=== PATIENT | male | born 1990 | race Caucasian/White ===

== ENCOUNTER 2017-01-03 17:41 | Emergency (ER) | payer OTHER ==
[~2017-01-03] VITALS: Ht 188 cm; Wt 104.3 kg
[~2017-01-03 17:41] MED LIST: IBUPROFEN600 MG PO; NORCO 5-325 TA1 EACH PO; ZITHROMAX250 MG PO
[2017-01-03] MEDS ORDERED: NEXIUM 24HR20 M1 PO (17:54)
[2017-01-03] MEDS ORDERED: ZANTAC300 MG PO (18:49)
== END 2017-01-03 19:19 | disposition home or self-care (01) ==
LOC: ED 17:41
DX: K21.0 Gastro-esophageal reflux disease with esophagitis (principal); Z79.899 Other long term (current) drug therapy
CPT/HCPCS: 80048; 85025; 96361; 96374; 96375; 99283; J2405; J7030

== ENCOUNTER 2017-12-22 19:54 | Emergency (ER) | payer OTHER ==
[~2017-12-22] VITALS: Ht 188 cm; Wt 108.4 kg
--- OUTSIDE RECORDS SUMMARY | ~2017-12-22 | XMS | Clinical Summary ---
Demographics + + + | Address | [address] | | | [place] [address] | + + + | Home Phone | | + + + | Preferred Language | Unknown | + + + | Marital Status | Unknown | + + + | Jew Affiliation | Unknown | + + + | Race | Unknown | + + + | Ethnic Group | Unknown | + + + Author + + + | Author | [facility] | | | and [facility] | + + + | Organization | [facility] | | | and [facility] | + + + | Address | Unknown | + + + | Phone | Unavailable | + + + Care Team Providers + +------+ + | Care Contract Post Office Clerk Name | Role | Phone | + +------+ + PP | Unavailable | + +------+ + Allergies Not on File Current Medications Not on file Active Problems Not [...] on file | | + + + Plan of Treatment + + + + + | Health Maintenance | Due Date | Last Done | Comments | + + + + + | Vaccine: | | | | | Dtap/Tdap/Td (1 - | 1 | | | | Tdap) | | | | + + + + + | Vaccine: Influenza | | | | | (#1) | 8 | | | + + + + + Results Not on filefrom Last 3 Months"
--- OUTSIDE RECORDS SUMMARY | ~2017-12-22 | XMS | Clinical Summary ---
Demographics + + + | Address | [address] | | | [place] [address] | + + + | Home Phone | | + + + | Preferred Language | Unknown | + + + | Marital Status | Single | + + + | Mandaen Affiliation | Unknown | + + + [...] Phone | + + +---------+ + | NATALYA MILTON | ECON | Unknown | | + + +---------+ + Care Team Providers + +------+ + | Care Tabular Typist Name | Role | Phone | + +------+ + PP | Unavailable | + +------+ + Source Comments ELYSSAAVTAR is fully live on both [facility] and [facility] Allergies No Known Allergies Current Medications Not on file Active Problems [...] | + + + + + | INFLUENZA VACCINE | | | | | (FLU SHOT) | 8 | | | + + + + + Results Not on filefrom Last 3 Months"
--- OUTSIDE RECORDS SUMMARY | ~2017-12-22 | XMS | Clinical Summary ---
Demographics + + + | Address | [address] | | | [place] [address] | + + + | Home Phone | | + + + | Preferred Language | Unknown | + + + | Marital Status | Unknown | + + + | Latter-Day Affiliation | Unknown | + + + | Race | Unknown | + + + | Ethnic Group | Unknown | + + + Author + + + | Author | [facility] | | | and [place] | + + + | Organization | [facility] | | | and [facility] | + + + | Address | Unknown | + + + | Phone | Unavailable | + + + Care Team Providers + +------+ + | Care Lineman Name | Role | Phone | + [...]
--- OUTSIDE RECORDS SUMMARY | ~2017-12-22 | XMS | Clinical Summary ---
Demographics + + + | Address | [address] | | | [place] [address] | + + + | Home Phone | | + + + | Preferred Language | Unknown | + + + | Marital Status | Single | + + + | Rastafari Affiliation | Unknown | + + + [...] Team Providers + +------+ + | Care Ui Ux Web Developer Name | Role | Phone | + +------+ + PP | Unavailable | + +------+ + Source Comments LEYSSAAVTAR is fully live on both [facility] and [facility] InPatient.[facility] Allergies No Known Allergies Current Medications Not [...]
[~2017-12-22 19:54] MED LIST changes: +NEXIUM 24HR20 M1 PO; +SIMVASTATIN20 MG PO; +ZANTAC300 MG PO
[2017-12-22] MEDS ORDERED: KETOROLAC TROME10 MG PO (20:39)
[2017-12-22] MEDS ORDERED: VITAMIN D250000 UNIT PO (20:40)
[2017-12-22] MEDS ORDERED: CLONIDINE HCL0.1 MG PO (20:40)
[2017-12-22] MEDS ORDERED: PROMETHAZINE HC25 M1 PO (20:40)
[2017-12-22] MEDS ORDERED: ESOMEPRAZOLE MA40 MG PO (20:40)
[2017-12-22] MEDS ORDERED: METHYLPHENIDATE18 MG PO (20:40)
== END 2017-12-22 21:57 | disposition home or self-care (01) ==
LOC: ED 19:54
DX: R51 Headache (principal); K21.9 Gastro-esophageal reflux disease without esophagitis; E78.00 Pure hypercholesterolemia, unspecified; I10 Essential (primary) hypertension; Z79.899 Other long term (current) drug therapy
CPT/HCPCS: 96374; 96375; 99283; J1200; J1885; J2765; J7030

== ENCOUNTER 2018-09-27 14:29 | Emergency (ER) | payer OTHER ==
[~2018-09-27] VITALS: Ht 188 cm; Wt 108.4 kg
--- OUTSIDE RECORDS SUMMARY | ~2018-09-27 | XMS | Clinical Summary ---
Demographics + + + | Address | [address] | | | [place] [address] | + + + | Home Phone | | + + + | Preferred Language | Unknown | + + + | Marital Status | Single | + + + | Sikhism Affiliation | Unknown | + + + | Race | White | + + + | Ethnic Group | Not or | + + + Author + + + | Organization | Unknown | + + + | Address | Unknown | + + + | Phone | Unavailable | + + + Support + + +---------+ + | Name | Relationship | Address | Phone | + + +---------+ + | Javier Kasper | ECON | Unknown | | + + +---------+ + Care Team Providers + +------+ + | Care Welding Machine Operator Plasma Arc Name | Role | Phone | + +------+ + PP | Unavailable | + +------+ + Source Comments [facility]AND[facility] Allergies No Known Allergies Medications Not on file Active Problems Not on file Social History + +-------+ +--------+------+ | Tobacco [...] recent travel history available. | + + Plan of Treatment + + + + + | Health Maintenance | Due Date | Last Done | Comments | + + + + + | Influenza (Flu) | | | | | vaccination (Season | 9 | | | | Ended) | | | | + + + + + Results Not on filefrom Last 3 Months"
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
--- OUTSIDE RECORDS SUMMARY | ~2018-09-27 | XMS | Clinical Summary ---
Demographics + + + | Address | [address] | | | [place] [address] | + + + | Home Phone | | + + + | Preferred Language | Unknown | + + + | Marital Status | Single | + + + | Quaker Affiliation | Unknown | + + + [...] Team Providers + +------+ + | Care Cooling Room Attendant Name | Role | Phone | + +------+ + PP | Unavailable | + +------+ + Source Comments MANDO is fully live on both [facility] and [facility] Allergies No Known Allergies Medications Not on [...]
--- OUTSIDE RECORDS SUMMARY | ~2018-09-27 | XMS | Encounter Summary ---
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 The family also has a few rentals in the area, and thus this is a very busy family with many activities during the day. Az and his entire family are all involved in the [facility] and this is a very positive influence on Az and he has taken a leadership role at the [facility] and his parents are quite proud of this. The family has tried varied forms of discipline with Az. They realize that physical discipline is not effective and are lessening that approach. They try time-outs as well as taking privileges away. 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 As mentioned earlier, Az does have some good friends. The last few months have been a period of adjustment, as Az has moved into a new school and area to live, away from his biological father who has lessened his contact with Az. The arrangement at the current time is that Corinne and Jose share custody of Az. Thus, it is joint custody but Jose Lyons is not as involved as Corinne had expected he would be. There is a question as to whether or not Az is feeling abandoned, perhaps a little depressed about his father not being very involved with him. The family does have Blue Cross/Blue Shield insurance, and I suggested that the family contact [employer]Blue [employer] and get a provider list of mental health therapists who work with children. Az would benefit from talking to someone about the things that are bothering him. It should be noted that Corinne was diagnosed approximately one year ago with muscular dystrophy. This slows her down somewhat but it is not a very serious form of muscular dystrophy but also might be weighing heavily on Az's mind if he does not understand exactly the severity of the muscular dystrophy. ASSESSMENT AND PLAN: Please see Dr. Sheng Vance's report regarding Az's psychological testing. It appears that Az has a cognitive score of 104, his Verbal IQ was 106, and his Performance IQ was 100. Az is described as having a lot of aggression and appearing to meet a diagnosis of Attention Deficit Hyperactivity Disorder, and it should be noted that his father also appears to have had this disorder. In terms of his Education evaluation, Deidre Katz found Az functioning in reading at the fifth grade level, at the sixth grade level in math, and written language was also at the fifth grade level. His fluency was at the fifth grade, eighth month level. It was the impression of the pediatricians evaluating Az today that he might benefit from a stimulant for his hyperactivity, and they are recommending Concerta. Please see Dr. Scottie Dobson's report along with that of Dr. Beni Tidwell regarding medication and other recommendations. It is my impression that Az's parents are extremely devoted to him and providing excellent care. I encouraged the family to follow through with getting ongoing therapy for Az, who is obviously struggling with some emotional issues. Social Work remains available to the family. Bobbi LylesSGuanako. Surfboard Maker JG/x36 [id number] signed by Interface, Biscuit Maker In at 12/27/2005 3:02 AM [facility] umented in this encounter Plan of Treatment Not on filedocumented as of this encounter Visit Diagnoses Not on filedocumented in this encounter
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
--- OUTSIDE RECORDS SUMMARY | ~2018-09-27 | XMS | Clinical Summary ---
Demographics + + + | Address | [address] | | | [place] [address] | + + + | Home Phone | | + + + | Preferred Language | Unknown | + + + | Marital Status | Unknown | + + + | Catholic Affiliation | Unknown | + + + | Race | Unknown | + + + | Ethnic Group | Unknown | + + + Author + + + | Author | [facility] | | | and [place] | + + + | Organization | [facility] | | | and [place] | + + + | Address | Unknown | + + + | Phone | Unavailable | + + + Care Team Providers + +------+ + | Care Chemistry Quality Control Analyst Name | Role | Phone | + +------+ + PP | Unavailable | + +------+ + Allergies [...] | | | Dtap/Tdap/Td (1 - | 1 | | | | Tdap) | | | | + + + + + | Vaccine: Influenza | | | | | (Season Ended) | 9 | | | + + + + + Results Not on filefrom Last 3 Months"
--- OUTSIDE RECORDS SUMMARY | ~2018-09-27 | XMS | Clinical Summary ---
Demographics + + + | Address | [address] | | | [place] [address] | + + + | Home Phone | | + + + | Preferred Language | Unknown | + + + | Marital Status | Unknown | + + + | Muslim Affiliation | Unknown | + + + | Race | Unknown | + + + | Ethnic Group | Unknown | + + + Author + + + | Author | [facility] | | | and [place] | + + + | Organization | [facility] | | | and [place] | + + + | Address | Unknown | + + + | Phone | Unavailable | + + + Care Team Providers + +------+ + | Care Extracorporeal Technician Name | Role | Phone | + [...]
[~2018-09-27 14:29] MED LIST changes: +CLONIDINE HCL0.1 MG PO; +ESOMEPRAZOLE MA40 MG PO; +KETOROLAC TROME10 MG PO; +METHYLPHENIDATE36 MG PO; +PROMETHAZINE HC25 M1 PO; +VITAMIN D250000 UNIT PO
--- OUTSIDE RECORDS SUMMARY | 2018-09-27 14:32 | XMS ---
PreManage Notification: SUE ELDRIDGE Security Second Language Tutor Events No recent Security Events currently on file CRITERIA MET - PDMP CARE PROVIDERS [facility]ACKARY JORD[facility] Medicine: Sports Medicine 12/23/2017-Current PHONE: Unknown Warren has no Care Guidelines for this patient. EBebeto VISIT COUNT (12 MO.) 3 VERONICA Choi TOTAL 3 NOTE: Visits indicate total known visits. 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
[2018-09-27] MEDS ORDERED: HYDROCHLOROTH12.5 MG PO (14:40)
[2018-09-27] MEDS ORDERED: OMEPRAZOLE20 MG PO (14:41)
[2018-09-27] MEDS ORDERED: LYRICA50 MG PO (14:41)
[2018-09-27] MEDS ORDERED: ROBAXIN-750750 MG PO (15:41)
== END 2018-09-27 15:55 | disposition home or self-care (01) ==
LOC: ED 14:29
DX: M54.6 Pain in thoracic spine (principal); M25.511 Pain in right shoulder; K21.9 Gastro-esophageal reflux disease without esophagitis; I10 Essential (primary) hypertension; Z79.899 Other long term (current) drug therapy
CPT/HCPCS: 99283

== ENCOUNTER 2019-04-25 06:48 | Emergency (ER) | payer OTHER ==
[~2019-04-25] VITALS: Ht 188 cm; Wt 113.4 kg
--- OUTSIDE RECORDS SUMMARY | ~2019-04-25 | XMS | Encounter Summary ---
Demographics + + + | Address | [address] | | | [place] [address] | + + + | Home Phone | | + + + | Preferred Language | Unknown | + + + | Marital Status | Unknown | + + + | Baptism Affiliation | Unknown | + + + | Race | Unknown | + + + | Ethnic Group | Unknown | + + + Author + + + | Author | [facility] | | | and [place] | + + + | Organization | [facility] | | | and [place] | + + + | Address | Unknown | + + + | Phone | Unavailable | + + + Care Team Providers + +------+ + | Care Associate Curator Name | Role | Phone | + +------+ + PCP | Unavailable | + +------+ + Encounter Details +--------+ + + + + | Date | Type | Department | Care Team | Description | +--------+ + + + + | 08/16/ | Hospital | [facility] | | | | 2003 | Encounter | MED CTR XRAY [address] | | | | | | [place] [address] | | | | | | [place] [address] | | | | | | [phone] | | | +--------+ + + + + Social History + +-------+ +--------+------+ | Tobacco Use | Types | Packs/Day | Years | Date | | | | | Used | | + +-------+ +--------+------+ | Never Assessed | | | | | + +-------+ +--------+------+ + + + | Sex Assigned at | Date Recorded | | | | + + + | Not on file | | + + + + + + + | Job Start Date | Occupation | Industry | + + + + | Not on file | Not on file | Not on file | + + + + + + + + | Travel History | Travel Start | Travel End | + + + + + + | No recent travel history available. | + + documented as of this encounter Plan of Treatment Not on filedocumented as of this encounter Visit Diagnoses Not on filedocumented in this encounter"
--- OUTSIDE RECORDS SUMMARY | ~2019-04-25 | XMS | Clinical Summary ---
Demographics + + + | Address | [address] | | | [place] [address] | + + + | Home Phone | | + + + | Preferred Language | Unknown | + + + | Marital Status | Single | + + + | Protestant Affiliation | Unknown | + + + [...] Team Providers + +------+ + | Care Basketball Scout Name | Role | Phone | + +------+ + PCP | Unavailable | + +------+ + Source Comments MANDO is fully live on both [facility] and [facility] Allergies No Known Allergies Medications Not [...] recent travel history available. | + + Last Filed Vital Signs Not on file Plan of Treatment + + + + + | Health Maintenance | Due Date | Last Done | Comments | + + + + + | Influenza (Flu) | | | | | vaccination (#1) | 9 | | | + + + + + | Pneumococcal | Aged Out | | No longer eligible | | vaccination | | | based on patient's | | | | | age to complete this | | | | | topic | + + + + + Results Not on filefrom Last 3 Months"
--- OUTSIDE RECORDS SUMMARY | ~2019-04-25 | XMS | Clinical Summary ---
Demographics + + + | Address | [address] | | | [place] [address] | + + + | Home Phone | | + + + | Preferred Language | Unknown | + + + | Marital Status | Unknown | + + + | Episcopalian Affiliation | Unknown | + + + | Race | Unknown | + + + | Ethnic Group | Unknown | + + + Author + + + | Author | [facility] | | | and [place] | + + + | Organization | [facility] | | | and [place] | + + + | Address | Unknown | + + + | Phone | Unavailable | + + + Care Team Providers + +------+ + | Care Process Improvement Consultant Name | Role | Phone | + +------+ + PCP | Unavailable | + +------+ + Allergies Not on File Medications Not on file Active Problems Not [...] | + + + + + | Vaccine: | | | | | Dtap/Tdap/Td (1 - | 3 | | | | Tdap) | | | | + + + + + | Vaccine: Influenza | | | | | (#1) | 9 | | | + + + + + Results Not on filefrom Last 3 Months"
--- OUTSIDE RECORDS SUMMARY | ~2019-04-25 | XMS | Encounter Summary ---
Demographics + + + | Address | [address] | | | [place] [address] | + + + | Home Phone | | + + + | Preferred Language | Unknown | + + + | Marital Status | Unknown | + + + | Islam Affiliation | Unknown | + + + | Race | Unknown | + + + | Ethnic Group | Unknown | + + + Author + + + | Author | [facility] | | | and [place] | + + + | Organization | [facility] | | | and [place] | + + + | Address | Unknown | + + + | Phone | Unavailable | + + + Care Team Providers + +------+ + | Care Director Of Professional Services Name | Role | Phone | + +------+ + PCP | Unavailable | + +------+ + Encounter Details +--------+ + + + + | Date | Type | Department | Care Team | Description | +--------+ + + + + | 08/16/ | Hospital | [facility] | | | | 2003 | Encounter | MED CTR XRAY [address] | | | | | | [place] [address] | | | | | | [place] [address] | | | | | | [phone] | | | +--------+ + + + [...]
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
--- OUTSIDE RECORDS SUMMARY | ~2019-04-25 | XMS | Clinical Summary ---
Demographics + + + | Address | [address] | | | [place] [address] | + + + | Home Phone | | + + + | Preferred Language | Unknown | + + + | Marital Status | Single | + + + | Scientologist Affiliation | Unknown | + + + [...] Team Providers + +------+ + | Care Cell Builder Name | Role | Phone | + +------+ + PCP | Unavailable | + +------+ + Source Comments MANDO is fully live on both [facility] and [facility] Allergies No Known Allergies [...]
--- OUTSIDE RECORDS SUMMARY | ~2019-04-25 | XMS | Encounter Summary ---
Demographics + + + | Address | [address] | | | [place] [address] | + + + | Home Phone | | + + + | Preferred Language | Unknown | + + + | Marital Status | Unknown | + + + | Restorationism Affiliation | Unknown | + + + | Race | Unknown | + + + | Ethnic Group | Unknown | + + + Author + + + | Author | [facility] | | | and [place] | + + + | Organization | [facility] | | | and [place] | + + + | Address | Unknown | + + + | Phone | Unavailable | + + + Care Team Providers + +------+ + | Care Dry Janitor Name | Role | Phone | + +------+ + PCP | Unavailable | + +------+ + Encounter Details +--------+ + + + + | Date | Type | Department | Care Team | Description | +--------+ + + + + | 05/22/ | Hospital | [facility] | Chuckie Pitts, | | | 2006 | Encounter | MED CTR SLEEP | [place] [address] | | | | | [place] [address] | [place] | | | | | [place] | [address] | | | | | [address] | | | | | | [phone] | | | +--------+ + + + [...]
--- OUTSIDE RECORDS SUMMARY | ~2019-04-25 | XMS | Clinical Summary ---
Demographics + + + | Address | [address] | | | [place] [address] | + + + | Home Phone | | + + + | Preferred Language | Unknown | + + + | Marital Status | Unknown | + + + | Church Affiliation | Unknown | + + + | Race | Unknown | + + + | Ethnic Group | Unknown | + + + Author + + + | Author | [facility] | | | and [place] | + + + | Organization | [facility] | | | and [place] | + + + | Address | Unknown | + + + | Phone | Unavailable | + + + Care Team Providers + +------+ + | Care Career Information Specialist Name | Role | Phone | [...]
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
--- OUTSIDE RECORDS SUMMARY | ~2019-04-25 | XMS | Encounter Summary ---
Demographics + + + | Address | [address] | | | [place] [address] | + + + | Home Phone | | + + + | Preferred Language | Unknown | + + + | Marital Status | Single | + + + | Baptist Affiliation | Unknown | + + + | Race | White | + + + | Ethnic Group | Not or | + + + Author + + + | Author | [facility] | + + + | Organization | [facility] | + + + | Address | Unknown | + + + | Phone | Unavailable | + + + Support + + +---------+ + | Name | Relationship | Address | Phone | + + +---------+ + | Javier Kasper | ECON | Unknown | | + + +---------+ + Care Team Providers + +------+ + | Care Bean Picker Machine Operator Name | Role | Phone [...] of this encounter Progress Notes Interface, Audit Clerks Supervisor In - 12/27/2005 3:02 AM PDTCLINIC DATE: [...] started attending the 4th grade in the [employer] in March 2001. A letter dated [...] should receive mental health counseling. The developmental electrician refinery does recommend a trial of medication. Continued [...] pleasure working with Az today. [facility] is aware that it is the [...] M.Ed. Special Education ConsultantElectronically signed by Interface, Audit Clerks Supervisor In at 006 3:02 AM PDTInterface, Audit Clerks Supervisor In - 12/27/2005 3:02 AM PDTCLINIC DATE: [...] mother in February and began attending the [employer]. His mother and the school [...] Test and the Behavior Assessment System for Rpcapmog-Pufd-Jcnagj and also review of the information available. [...] VERBAL SUBTESTS PERFORMANCE SUBTESTS Information 12 Picture Hdkjqmuwbv90 Similarities 12 Coding 11 Arithmetic 8 Picture Mcxlicoldct02 Vocabulary 12 Block Design 8 Comprehension 11 [...] Sheng Vance, Ph.D. Clinical Psychologist RHJ/x36 C: [facility] [id number] signed by Rei, Audit Clerks Supervisor In at 12/27/2005 3:02 AM Hiwot fernández, Audit Clerks Supervisor In - 12/27/2005 3:02 AM PDTCLINIC DATE: 09/28/2001 CLINIC NAME: CHILD DEVELOPMENT CLINIC DISCIPLINE: DEVELOPMENTAL PEDIATRICS Az Lyons is a 24-ntxj-pka-bgkr-pxlgn-was male, who was seen today in the Child Development Clinic. Today's visit was at the request of his mother, and will include evaluations from Developmental Pediatrics, Child Psychology, Social Work, and Special Education. Az was accompanied to the clinic today by his mother and stepfather, Corinne and Javier Kasper, as well as by his merr-oeaw-znz half-brother, Kenn. Their main concerns are with [...] father from that time, until he was craq-yva-pti-half years of age. Corinne Kasper has always [...] with penetration. Rosetta brought this to the [facility] [address], where Jose [place]ons lived; [...] is currently in the fourth grade at [employer] in [place], [place]. He has been at this school [...] behavioral difficulties were brought up to the electrician refinery's attention. He placed Az on clonidine this [...] on 20 mg once per day for rif-klp-xpy-half months. When this did not show any [...] As stated above, Az currently lives in [place] with his mother, stepfather, and younger half-brother. He does occasionally see his biological father on the weekends. He also has a half-sister, who is currently 26 years of age and is out of the house. 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 Secondary to this, she does have difficulties with her strength. 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 Her niece also helps out at the daycare, and does the lifting. Javier Kasper currently works as a correctional supervising cook. 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 They both state that they have good support in the [place] area. FAMILY HISTORY: Corinne states that school came easily for her. She graduated from high school, and took a few college courses. She did have some depression after she lost her qxnd-svj-asw infant. She has not had any other [...] strength throughout. He had no difficulties with szhmqd-gq-sqbm or rapid alternating movements. He had 2+ [...] language score was 100. Overall, the educational psychology professor did not have any concerns with regards [...] this some more and follow-up with their electrician refinery in [place]. If they do decide to use a [...] Developmental Pediatric Fellow Beni Tidwell M.D. Developmental Serging Machine Operator Automatic RN:x50 cc: LOPEZ JORDAN MD [address] [place] [address] [id number] signed by Interface, Audit Clerks Supervisor In at 12/27/2005 3:02 AM PDTInt pradeep, Audit Clerks Supervisor In - 12/27/2005 3:02 AM PDTCLINIC DATE: [...] years age). Otherwise, he does well with nkxwna-td-rzwut pointing, hopping on one foot, and stress gait analysis. Screening testing reveals normal speech and language for age, the GESELL was appropriate for age. Developmental Evaluation: Az was seen in an interdisciplinary fashion by the psychologist and sld educational aide. He was noted to have average range [...] liaison, or coordination. Beni Tidwell M.D. Developmental Serging Machine Operator Automatic Claims Service Adjustor, Pediatrics MM:x50 [id number] signed by Rei, Audit Clerks Supervisor In at 12/27/2005 3:02 AM Hiwot fernández, Audit Clerks Supervisor In - 12/27/2005 3:02 AM PDTCLINIC DATE: [...] disruptive behavior. The Theo family resides in [place], [place]. The family is composed of Mr. [...] is currently in fourth grade at the [employer] in [place]. The family support system includes lots of [...] Jose Lyons for approximately three years, from 5140-6897. 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 The family also has a few rentals in the area, and thus this is a very busy family with many activities during the day. Az and his entire family are all involved in the [facility] and this is a very positive influence on Az and he has taken a leadership role at the [facility] and his parents are quite proud of this. The family has tried varied forms of discipline with Az. They realize that physical discipline is not effective and are lessening that approach. They try time-outs as well as taking privileges away. Az does play baseball and is described as a very good lowerator operator and also a good student. As mentioned [...] remains available to the family. Bobbi LylesSGuanako. Violin Teacher JG/x36 [id number] signed by Interface, Audit Clerks Supervisor In at 12/27/2005 3:02 AM [facility] in this encounter Plan of Treatment Not on filedocumented as of this encounter Visit Diagnoses Not on filedocumented in this encounter
--- OUTSIDE RECORDS SUMMARY | ~2019-04-25 | XMS | Encounter Summary ---
Demographics + + + | Address | [address] | | | [place] [address] | + + + | Home Phone | | + + + | Preferred Language | Unknown | + + + | Marital Status | Unknown | + + + | Quaker Affiliation | Unknown | + + + | Race | Unknown | + + + | Ethnic Group | Unknown | + + + Author + + + | Author | [facility] | | | and [place] | + + + | Organization | [facility] | | | and [place] | + + + | Address | Unknown | + + + | Phone | Unavailable | + + + Care Team Providers + +------+ + | Care Superintendent Distribution Name | Role | Phone | + +------+ + PCP | Unavailable | + +------+ + Encounter Details +--------+ + + + + | Date | Type | Department | Care Team | Description | +--------+ + + + + | 05/22/ | Hospital | [facility] | Chuckie Pitts, | | | 2006 | Encounter | MED CTR SLEEP | [place] [address] | | | | | [place] [address] | [place] | | | | | [place] | [address] | | | | | [address] | | | | | | [phone] | | | +--------+ + + + [...]
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
[~2019-04-25 06:48] MED LIST changes: +HYDROCHLOROTH12.5 MG PO; +LYRICA50 MG PO; +OMEPRAZOLE20 MG PO; +ROBAXIN-750750 MG PO
--- OUTSIDE RECORDS SUMMARY | 2019-04-25 06:50 | XMS ---
PreManage Notification: SUE ELDRIDGE Security Senior Applications Engineer Events No recent Security Events currently on file CRITERIA MET - [facility] - Has Care Guidelines CARE PROVIDERS [facility] 09/28/2018-Current PHONE: Unknown ZACKARY JORDAN [facility] Medicine: Sports Medicine 12/23/2017-Current PHONE: Unknown Warren has no Care Guidelines for this patient. Care History Medical/Surgical 09/28/2018 [facility] - Patient is currently established with [facility]. If patient is seen in the ED during business hours. Please contact [facility] at [facility]. Care Recommendation: This patient has had 5 or more Emergency Department visits in the last 12 months.\T\nbsp; Patient requires education on the scope and purpose of the ED as an acute care provider not a Primary Care Provider and should not be utilized for chronic conditions.\T\nbsp; These are guidelines and the provider should exercise clinical judgment when providing care. E.D. VISIT COUNT (12 MO.) 2 VERONICA Choi TOTAL 2 NOTE: Visits indicate total known visits. ED/UCC VISIT TRACKING (12 MO.) 04/25/2019 06:49 [facility] [place] TYPE: Emergency COMPLAINT: - POSSIBLE SEIZURE 09/27/2018 14:30 [facility] [place] TYPE: Emergency COMPLAINT: - BACK PAIN,NO INJURY DIAGNOSES: - Pain in right shoulder - Gastro-esophageal reflux disease without esophagitis - Pain in thoracic spine - Essential (primary) hypertension - Other moth exterminator (current) drug therapy INPATIENT VISIT TRACKING (12 MO.) No inpatient visits to display in this time frame [email or web address]
[2019-04-25] MEDS ORDERED: ONDANSETRON ODT8 MG PO (07:39)
== END 2019-04-25 08:09 | disposition home or self-care (01) ==
LOC: ED 06:48
DX: R55 Syncope and collapse (principal); K21.9 Gastro-esophageal reflux disease without esophagitis; I10 Essential (primary) hypertension; Z88.5 Allergy status to narcotic agent; Z79.899 Other long term (current) drug therapy
CPT/HCPCS: 80053; 85025; 99284

== ENCOUNTER 2019-06-13 19:11 | Emergency (ER) | payer OTHER ==
[~2019-06-13] VITALS: Ht 188 cm; Wt 116.6 kg
[~2019-06-13 19:11] MED LIST changes: +ONDANSETRON ODT8 MG PO
--- OUTSIDE RECORDS SUMMARY | 2019-06-13 19:14 | XMS ---
PreManage Notification: SUE ELDRIDGE Security Non Destructive Evaluation Specialist Events No recent Security Events currently on file CRITERIA MET - [facility] - Has Care Guidelines CARE PROVIDERS RYAN CABRERA Dentist: Paper Bags Sewing Machine Operator 04/26/2019-Current PHONE: [phone] Alvaro Rodriguez Family Medicine 09/28/2018-Current PHONE: Unknown ZACKARY JORDAN Family Medicine: Sports Medicine 12/23/2017-Current PHONE: Unknown Warren has no Care Guidelines for this patient. Care History Medical/Surgical 09/28/2018 [facility] - Patient is currently established with [facility]. If patient is seen in the ED during business hours. Please contact CHWs at [facility]. Care Recommendation: This patient has had 5 [...] providing care. E.D. VISIT COUNT (12 MO.) [address] [facility] TOTAL 3 NOTE: Visits indicate total known visits. ED/UCC VISIT TRACKING (12 MO.) 06/13/2019 19:12 [facility] [place] TYPE: Emergency COMPLAINT: - BACK PAIN 04/25/2019 06:49 [facility] [place] TYPE: Emergency COMPLAINT: - POSSIBLE SEIZURE DIAGNOSES: - Allergy status to narcotic agent status - Other systems software designer (current) drug therapy - Essential (primary) hypertension - Syncope and collapse - Gastro-esophageal reflux disease without esophagitis 09/27/2018 14:30 [facility] [place] TYPE: Emergency COMPLAINT: - BACK PAIN,NO INJURY DIAGNOSES: - Pain in right shoulder - Gastro-esophageal reflux disease without esophagitis - Pain in thoracic spine - Essential (primary) hypertension - Other systems software designer (current) drug therapy INPATIENT VISIT TRACKING (12 MO.) No inpatient visits to display in this time frame [email or web address]
[2019-06-13] MEDS ORDERED: CYCLOBENZAPRINE10 MG PO (20:19)
[2019-06-13] MEDS ORDERED: PREDNISONE20 MG PO (20:20)
[2019-06-13] MEDS ORDERED: NORCO 5-325 TA1 EACH PO (20:41)
== END 2019-06-13 20:57 | disposition home or self-care (01) ==
LOC: ED 19:11
DX: M54.42 Lumbago with sciatica, left side (principal); G89.29 Other chronic pain; I10 Essential (primary) hypertension; K21.9 Gastro-esophageal reflux disease without esophagitis; Z88.5 Allergy status to narcotic agent; Z79.899 Other long term (current) drug therapy; Z79.52 Long term (current) use of systemic steroids
CPT/HCPCS: 99283

== ENCOUNTER 2023-04-13 00:29 | Emergency (ER) | payer OTHER ==
[~2023-04-13] VITALS: Ht 188 cm; Wt 110.2 kg
[~2023-04-13 00:29] MED LIST changes: +CYCLOBENZAPRINE10 MG PO; +FLUOXETINE HCL20 MG PO; +HYDROCODON-ACE1 EA10 PO; +LEVOFLOXACIN500 MG PO; +LOMOTIL TABLET1 EACH PO; +OMEPRAZOLE40 MG PO; +PREDNISONE20 MG PO
--- OUTSIDE RECORDS SUMMARY | 2023-04-13 00:37 | XMS ---
PreManage Notification: SUE ELDRIDGE Security Program Engineer Events No recent Security Events currently on file CRITERIA MET - [facility] - 2 Visits in 30 Days CARE PROVIDERS RYAN CABRERA Dentist: Burglary Investigator 04/26/2019-Current PHONE: [phone] Alvaro Rodriguez [facility] 09/28/2018-Current PHONE: Unknown JULIAN HANNAH [facility] 12/23/2017-Current PHONE: Unknown Warren has no Care Guidelines for this patient. E.Viktor. VISIT COUNT (12 MO.) [address] [facility]. TOTAL 4 NOTE: Visits indicate total known visits. ED/UCC VISIT TRACKING (12 MO.) 04/13/2023 00:30 [facility] [place] TYPE: Emergency COMPLAINT: - TESICULAR PAIN 04/12/2023 12:49 [facility] [place] TYPE: Emergency COMPLAINT: - LOWER ABDOMINAL PAIN 12/29/2022 19:44 [facility] [place] TYPE: Emergency COMPLAINT: - R HAND INJ DIAGNOSES: - Activity, roller skating (inline) and skateboarding - Allergy status to narcotic agent - Essential (primary) hypertension - Fall from skateboard, initial encounter - Gastro-esophageal reflux disease without esophagitis - Other alf (current) drug therapy - Pain in right finger(s) - Unspecified sprain of right little finger, initial encounter - Unspecified sprain of right ring finger, initial encounter 10/03/2022 11:49 [facility] [place] TYPE: Emergency COMPLAINT: - ABD PAIN, V/D, BLACK STOOL DIAGNOSES: - Allergy status to narcotic agent - Diarrhea, unspecified - Essential (primary) hypertension - Gastro-esophageal reflux disease without esophagitis - Noninfective gastroenteritis and colitis, unspecified - Other terminal makeup operator (current) drug therapy INPATIENT VISIT TRACKING (12 MO.) No inpatient visits to display in this time frame [id number]
[2023-04-13 01:15] VITALS: BP 123/87
== END 2023-04-13 01:15 | disposition home or self-care (01) ==
LOC: ED 00:29
DX: N45.3 Epididymo-orchitis (principal); I10 Essential (primary) hypertension; K21.9 Gastro-esophageal reflux disease without esophagitis; Z88.5 Allergy status to narcotic agent; Z79.899 Other long term (current) drug therapy
CPT/HCPCS: A9270

== ENCOUNTER 2023-11-14 10:30 | Emergency (ER) | payer OTHER ==
[2023-11-14 13:07] VITALS: BP 153/102
[2023-11-14 14:08] LABS: BASOPHILS 0.3 % (0-2); EOSINOPHILS 1.7 % (0-6); HEMATOCRIT 47.1 % (35.0-50.0); HEMOGLOBIN 16.2 g/dL (12.0-18.0); LYMPHOCYTES 32.1 % (24-44); MCH 28.8 (27-36); MCHC 34.4 g/dl (30-36); MCV 83.8 fl (81-99); MONOCYTES 5.6 % (0-12); NEUTROPHILS 60.3 % (39-80); PLATELET COUNT 240 K/uL (140-440); RBC 5.62 M/ul (4.3-5.7)
[2023-11-14 14:25] LABS: ANION GAP 9.1 (7-21); BUN/CREATININE RATIO 28.44 (6.0-28.6); CALCIUM 9.2 mg/dL (8.5-10.1); CREATININE, SERUM 1.16 mg/dL (0.70-1.30); POTASSIUM 4.1 mmol/L (3.5-5.1); PROTEIN, TOTAL 7.7 g/dL (6.4-8.2)
[2023-11-14 14:26] LABS: ALBUMIN 4.3 g/dL (3.4-5.0); ALBUMIN/GLOBULIN RATIO 1.26 (1.1-2.4); BILIRUBIN, TOTAL 0.4 ng/dL (0.2-1.0)
--- NOTE | 2023-11-17 11:30 | EKG ---
[facility] [address] [facility] [facility] [place], [place] [address] Signed Normal sinus rhythm Normal ECG No previous ECGs available Confirmed by ARI LEBRON MD ([id number]) on 11/17/2023 11:30:01 AM Electronically Signed By: ARI LEBRON 11/17/23 1130 PATIENT NAME: CHENTESUE Electrocardiogram DATE OF : 89 PHYSICIAN: ARI LEBRON REPORT #: [id number] REPORT IS CONFIDENTIAL AND NOT TO BE RELEASED WITHOUT AUTHORIZATION
== END 2023-11-14 13:06 | disposition home or self-care (01) ==
LOC: ED 10:30
PROVIDERS: Emergency Medicine
DX: R07.89 Other chest pain (principal); I10 Essential (primary) hypertension
CPT/HCPCS: 36415; 80053; 84484; 85025; 93005; 93010